=== PATIENT | female | born 1980 | race Caucasian/White ===

== ENCOUNTER 2016-04-03 22:31 | Emergency (ER) | payer MEDICAID ==
[~2016-04-03] VITALS: Ht 144.8 cm; Wt 65.8 kg
[2016-04-03 23:07] VITALS: BP 144/63
--- NOTE | 2016-04-03 23:36 | NUR ---
AMBULATED TO ER BED 6 Addendum: 04/03/16 at 2337 by [facility] AMBULATED TO ER BED 7
--- NOTE | 2016-04-03 23:50 | NUR ---
Patient being evaluated by physician at bedside.
--- NOTE | 2016-04-03 23:52 | NUR ---
36 Y/O HERE C/O TENSION/PRESSURE IN HEAD AND NECK X 2 WKS. DENIES ANY PAIN, VISUAL PROBLEMS OR DIZZINESS. ER MD AWARED OF IT.
[2016-04-04 01:30] VITALS: BP 105/61
--- NOTE | 2016-04-04 01:30 | NUR ---
Patient discharged with v/s stable. Written and verbal after care instructions given and explained. Patient verbalized understanding. Ambulatory with steady gait. All questions addressed prior to discharge. Advised to follow up with PMD.
== END 2016-04-04 01:30 | disposition home or self-care (01) ==
LOC: MED 22:31
DX: R51 Headache (principal)